=== PATIENT | female | born 1975 | race Caucasian/White ===

== ENCOUNTER 2021-09-05 07:50 | Emergency (ER) | payer BC ==
[~2021-09-05] VITALS: Ht 167.6 cm; Wt 83.9 kg
[2021-09-05 07:56] VITALS: BP_SYST 125
--- NOTE | 2021-09-05 08:00 | NUR ---
pt. bib with c/o right sided abd. pain 9/10 with N/V X 2 days
--- NOTE | 2021-09-05 08:03 | NUR ---
Patient to ER bed 7 to gown for evaluation. Side rails up. Assumed care.
--- NOTE | 2021-09-05 08:30 | NUR ---
ER at bedside examining patient.
[2021-09-05] MEDS ORDERED: MORPHINE 4 MG INJ. 4 MG/ML VIAL IVP ONE (08:45)
[2021-09-05] MEDS ORDERED: NACL 0.9% 1,000 ML IV ONE (08:45)
[2021-09-05] MEDS ORDERED: DIPHENHYDRAMINE INJ 50 MG/ML VIAL IVP ONE (08:45)
[2021-09-05] MEDS ORDERED: ONDANSETRON HCL 4 MG/2 ML VIAL IVP ONE (08:45)
--- NOTE | 2021-09-05 09:11 | NUR ---
Patient transported to radiology via gurney, accompanied by staff.
[2021-09-05 09:16] LABS: BILIRUBIN,URINE NEGATIVE (NEGATIVE); BLOOD, URINE TRACE (NEGATIVE); CLARITY/URINE CLEAR (CLEAR); COLOR,URINE YELLOW (YELLOW); GLUCOSE,URINE NEGATIVE (NEGATIVE); KETONES,URINE NEGATIVE (NEGATIVE); LEUKOCYTE ESTERASE ,URINE NEGATIVE (NEGATIVE); NITRITE, URINE NEGATIVE (NEGATIVE); PROTEIN URINE TRACE (NEGATIVE); UROBILINOGEN,URINE 0.2 (0.2-1.0)
[2021-09-05 09:30] LABS: BACTERIA,URINE FEW /HPF (None Seen); WBC,URINE 0-3 /HPF (0-3)
[2021-09-05 09:47] LABS: BASOPHILS # (AUTO) 0.1 K/uL (0.0-0.2); BASOPHILS % (AUTO) 0.8 % (0.0-2.0); EOSINOPHILS % (AUTO) 0.4 % (0.0-4.0); HEMOGLOBIN 14.5 g/dL (12.0-16.0); LYMPHOCYTES # (AUTO) 1.1 K/uL (1.0-5.5); LYMPHOCYTES % (AUTO) 15.4 % (20.5-51.5); MEAN CORPUSCULAR HEMOGLOBIN 30 pg (27-31); MEAN CORPUSCULAR HGB CONC 35 % (32-36); MEAN CORPUSCULAR VOLUME 88 fL (79.0-98.0); MONOCYTES # (AUTO) 0.3 K/uL (0.0-1.0); NEUTROPHILS # (AUTO) 5.5 K/uL (1.8-7.7); NEUTROPHILS % (AUTO) 78.4 % (40.0-70.0); PLATELET COUNT (AUTO) 279 K/uL (130-430); RED BLOOD CELL COUNT(AUTO) 4.77 MIL/uL (4.2-6.2)
[2021-09-05 09:52] LABS: CALCIUM 9.2 mg/dL (8.4-11.0); CREATININE 0.5 mg/dL (0.55-1.30)
[2021-09-05 10:04] LABS: ALBUMIN 4.1 g/dL (3.4-4.8); TOTAL BILIRUBIN 0.6 mg/dL (0.0-1.0)
--- NOTE | 2021-09-05 11:01 | NUR ---
scaned bladder with bladder scanner measures over 999ml., pt. does not have strong urge to void, was able to void, voided [address] Cruz, order to place adams
--- NOTE | 2021-09-05 11:07 | NUR ---
called materials for adams catheter
--- NOTE | 2021-09-05 11:44 | NUR ---
urinary cath placed, pt. tolerated well, 100 ml. out notified zane Tom to leave in place at this time
[2021-09-05] MEDS ORDERED: KETOROLAC TROMETHAMINE 30 MG VIAL IVP ONE (12:45)
[2021-09-05 13:05] VITALS: BP_SYST 132
--- NOTE | 2021-09-05 13:06 | NUR ---
Patient given written and verbal discharge instructions and verbalizes understanding. ER discussed with patient the results and treatment provided. Patient in stable condition. ID arm band removed. IV catheter removed intact and dressing applied, no active bleeding. Rx of [place] and Zofran given. Patient educated on pain management and to follow up with PMD and Dr. Love [employer]. Pain Scale 5. Opportunity for questions provided and answered. Medication side effect fact sheet provided.
== END 2021-09-05 13:06 | disposition home or self-care (01) ==
LOC: SED 07:50
DX: N83.201 Unspecified ovarian cyst, right side (principal); R10.31 Right lower quadrant pain
CPT/HCPCS: 36415; 74176; 76376; 80053; 81000; 81025; 83605; 83690; 85025; 87040; 96361; 96374; 96375; 99284; J1200; J1885; J2270; J2405; J7030